=== PATIENT | female | born 1930 | race Caucasian/White ===

== ENCOUNTER 2017-06-25 08:25 | Inpatient (IN) | payer MEDICARE, OTHER ==
[~2017-06-25] VITALS: Ht 165.1 cm; Wt 62.3 kg
[2017-06-25] MEDS ORDERED: WARF2.5T73 PO (08:58)
[2017-06-25] MEDS ORDERED: MORPHINE SULFATE 4 MG/ML, 1ML ONE (09:23)
[2017-06-25] MEDS ORDERED: ONDANSETRON 2MG/ML, 2ML ONE (09:23)
[2017-06-25] MEDS ORDERED: ONDANSETRON 2MG/ML, 2ML IVPush ONE (09:30)
[2017-06-25] MEDS ORDERED: MORPHINE SULFATE 4 MG/ML, 1ML IVPush PRN (09:30)
[2017-06-25] MEDS ORDERED: SODIUM CHLORIDE FLUSH 10ML SYR IVF ONE (09:30)
[2017-06-25] MEDS ORDERED: PROP10DR2 EACHEYE (09:34)
[2017-06-25] MEDS ORDERED: AZEL205.2 NAS (09:34)
[2017-06-25] MEDS ORDERED: OMEP-110 PO (09:34)
[2017-06-25] MEDS ORDERED: CHOL500045 PO (09:34)
[2017-06-25] MEDS ORDERED: SPIR25TA3 PO (09:34)
[2017-06-25] MEDS ORDERED: VIT1TABL32 PO (09:34)
[2017-06-25] MEDS ORDERED: METO25TA35 PO (09:34)
[2017-06-25] MEDS ORDERED: CALC1CAP8 PO (09:34)
[2017-06-25] MEDS ORDERED: MULT-717 PO (09:34)
[2017-06-25] MEDS ORDERED: LEVO100T5 PO (09:34)
[2017-06-25 09:45] LABS: HEMOGLOBIN 14.3 g/dL (11.7-16.4); WHITE BLOOD COUNT 6.5 x10^3/uL (3.4-10)
[2017-06-25 09:54] LABS: ASPARTATE AMINO TRANSFERASE 22 U/L (15-37); BLOOD UREA NITROGEN 27 mg/dL (7-18)
[2017-06-25 10:00] LABS: IS PT STATUS REG ER OR PRE ER? YES
[2017-06-25] MEDS ORDERED: ENALAPRILAT 1.25 MG/ML, 2ML ONE (10:00)
[2017-06-25] MEDS ORDERED: ENALAPRILAT 1.25 MG/ML, 2ML IV ONE (10:00)
[2017-06-25] MEDS ORDERED: OMNIPAQUE 350 MG/ML, 100ML BOTTLE ONE (10:47)
[2017-06-25] MEDS ORDERED: SODIUM CHLORIDE 0.9% 1,000 ML IV SCH (14:03)
[2017-06-25 14:20] VITALS: BP 191/73
[2017-06-25] MEDS ORDERED: ACETAMINOPHEN 325 MG TABLET PO PRN (14:30)
[2017-06-25] MEDS ORDERED: POLYETHYLENE GLYCOL 17 GM PACKET PO PRN (14:30)
[2017-06-25] MEDS ORDERED: LABETALOL 5MG/ML, 20ML IVPush PRN (14:30)
[2017-06-25] MEDS ORDERED: DOCUSATE 100 MG CAPSULE PO PRN (14:30)
[2017-06-25] MEDS ORDERED: BISACODYL 10 MG SUPP PR PRN (14:30)
[2017-06-25] MEDS ORDERED: NITROGLYCERIN 0.4 MG BOTTLE (25 TABS) SL PRN (14:30)
[2017-06-25 15:20] LABS: IS PT STATUS REG ER OR PRE ER? NO
[2017-06-25 15:45] VITALS: BP 169/79
[2017-06-25 16:00] VITALS: BP 155/82
[2017-06-25] MEDS: SIMETHICONE 125 MG CHEW TAB PO SCH ×3 (16:00→22:22)
[2017-06-25] MEDS ORDERED: WARFARIN 2.5 MG TABLET PO-COUM ONE (18:00)
[2017-06-25 20:03] VITALS: BP 153/82
[2017-06-25 20:33] LABS: IS PT STATUS REG ER OR PRE ER? NO
[2017-06-25 21:14] VITALS: BP 159/75
[2017-06-25] MEDS: FAMOTIDINE 20 MG/2 ML IVPush SCH (21:15)
[2017-06-25] MEDS: METOPROLOL TARTRATE 25 MG TABLET PO SCH (21:15)
[2017-06-26 03:04] VITALS: BP 131/69
[2017-06-26 05:07] LABS: HEMATOCRIT 40.6 % (34.6-47.8); HEMOGLOBIN 13.6 g/dL (11.7-16.4)
[2017-06-26 05:12] LABS: BLOOD UREA NITROGEN 20 mg/dL (7-18)
[2017-06-26 05:17] LABS: ASPARTATE AMINO TRANSFERASE 26 U/L (15-37)
[2017-06-26] MEDS ORDERED: LEVOTHYROXINE 100 MCG TABLET PO SCH (06:00)
[2017-06-26] MEDS ORDERED: OMEPRAZOLE 20 MG CAPSULE.DR PO SCH (07:30)
[2017-06-26 07:38] VITALS: BP 155/84
[2017-06-26] MEDS ORDERED: REGADENOSON 0.4 MG/5 ML SYRINGE ONE (07:44)
[2017-06-26] MEDS ORDERED: SPIRONOLACTONE 25 MG TABLET PO SCH (09:00)
[2017-06-26 12:32] VITALS: BP 171/84
[2017-06-26] MEDS: SIMETHICONE 125 MG CHEW TAB PO SCH ×2 (12:36→16:00)
[2017-06-26] MEDS: FAMOTIDINE 20 MG/2 ML IVPush SCH (12:37)
[2017-06-26] MEDS: METOPROLOL TARTRATE 25 MG TABLET PO SCH (12:37)
[2017-06-26] MEDS ORDERED: SIME80TA14 PO (13:35)
[2017-06-26] MEDS ORDERED: METO50TA82 PO (13:46)
[2017-06-26 13:47] VITALS: BP 153/76
[2017-06-26] MEDS ORDERED: WARFARIN 2.5 MG TABLET PO-COUM ONE (18:00)
== END 2017-06-26 18:59 | disposition home or self-care (01) | DRG 305 ==
LOC: ED 08:58 → EDIP 11:43 → 5SO 14:05
PROVIDERS: ADMIT Hospitalist; ATTEND Hospitalist
DX: I16.0 Hypertensive urgency (principal); D68.69 Other thrombophilia; I48.91 Unspecified atrial fibrillation; N18.3 Chronic kidney disease, stage 3 (moderate); C64.2 Malignant neoplasm of left kidney, except renal pelvis; I12.9 Hypertensive chronic kidney disease with stage 1 through stage 4 chronic kidney disease, or unspecified chronic kidney disease; E03.9 Hypothyroidism, unspecified; N28.89 Other specified disorders of kidney and ureter; Z88.5 Allergy status to narcotic agent; Z79.01 Long term (current) use of anticoagulants; Z90.89 Acquired absence of other organs; Z90.49 Acquired absence of other specified parts of digestive tract; Z90.710 Acquired absence of both cervix and uterus; Z79.899 Other long term (current) drug therapy
CPT/HCPCS: 36415; 71010; 71275; 74174; 78452; 80053; 81003; 83690; 83735; 84100; 84484; 85025; 85610; 85730; 93005; 93017; 96374; J2785; Q9967; A9502; C9898; J7030; S0028